=== PATIENT | female | born 1965 | race Caucasian/White ===

== ENCOUNTER 2016-06-13 21:12 | Emergency (ER) | payer OTHER ==
[~2016-06-13] VITALS: Ht 162.6 cm; Wt 69.9 kg
[~2016-06-13 21:12] MED LIST: AUGMENTIN 500M500 MG PO; B-121000 MC3 PO; CLARITHROMYCIN500 MG PO; IBUPROFEN800 M1 PO; MEDROL DOSEPAK1 PAC PO; MENEST0.625 MG PO; METOPROLOL SUCC25 M1 PO; NEXIUM 40MG40 MG PO; PATANASE0.6% NASB; PERCOCET 5-3251 EACH PO; SINGULAIR10 MG PO; TYLENOL WITH C1 EACH PO; VENTOLIN HFA18 GM INH; VICODIN5-300 PO; VITAMIN D31000 UNI1 PO; ZOFRAN ODT4 M1 SL; ZYRTEC10 M3 PO
--- NOTE | 2016-06-13 21:49 | ED GENERAL ADULT ---
History of Present Illness General Chief Complaint: General Adult Stated Complaint: NECK LUMP?? Source: patient Exam Limitations: no limitations Vital Signs & Intake/Output Vital Signs & Intake/Output Vital Signs Date Time Temp Pulse Resp B/P Pulse O2 O2 Flow FiO2 Ox Delivery Rate 06/13 2341 97.8 70 18 118/70 99 Room Air 06/13 2128 97.4 64 18 126/76 98 Room Air ED Intake and Output 06/14 0000 06/13 1200 Intake Total 0 Output Total Balance 0 Intake, Oral 0 Patient 154 lb Weight Allergies Coded Allergies: NO KNOWN ALLERGIES (09/23/15) Reconcile Medications Albuterol Sulfate (Ventolin Hfa) 90 MCG HFA.AER.AD 2 PUF INH Q4H PRN RESPIRATORY (Reported) Cetirizine HCl (Zyrtec) 10 MG TABLET 1 TAB PO DAILY ASTHMA (Reported) Cholecalciferol (Vitamin D3) (Vitamin D3) (Unknown Strength) CAPSULE 1 TAB PO DAILY SUPPLEMENT (Reported) Cyanocobalamin (Vitamin B-12) (B-12) (Unknown Strength) TABLET 1 TAB PO DAILY SUPPLEMENT (Reported) Ibuprofen 800 MG TABLET 800 MG PO Q6P PRN UTERINE CRAMPING Metoprolol Succinate 25 MG TAB 0.5 TAB PO DAILY HEART (Reported) Montelukast Sodium (Singulair) 10 MG TABLET 1 TAB PO DAILY PRN ALLERGIES ( Reported) Oxycodone HCl/Acetaminophen (Percocet 5-325 MG Tablet) 5 MG-325 MG TABLET 1 TAB PO Q4P PRN PAIN SCALE 4-6 (MODERATE) Triage Note: PT STATES THAT HER CO WORKER POINTED A LUMP OUT TO HER ON HER NECK. PT DENIES PAIN TO AREA AND JUST WANTS IT LOOKED AT Triage Nurses Notes Reviewed? yes HPI: Patient is a 51-year-old female presents complaining of lump to the anterior inferior aspect of her neck. Patient reports a coworker noticed the area yesterday. Patient reports that the area feels mildly increased in size and feels more irritated today. Pain is an irritation pain, currently mild. Denies fevers, chills, congestion, sore throat (SUNITA VARGAS) Past History Travel History Traveled to [place] past 21 day No Medical History Any Pertinent Medical History? 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 No (SUNITA VARGAS) Review of Systems Review of Systems Constitutional: Denies: chills, fever. EENTM: Reports: no symptoms. Denies: nasal congestion, throat pain, throat swelling. Respiratory: Denies: cough, short of breath. Cardiovascular: Denies: chest pain. GI: Reports: no symptoms. Denies: abdominal pain. Genitourinary: Reports: no symptoms. Musculoskeletal: Reports: no symptoms. Skin: Reports: see HPI. Neurological/Psychological: Reports: no symptoms. Hematologic/Endocrine: Reports: no symptoms. Immunologic/Allergic: Reports: no symptoms. (SUNITA VARGAS) Physical Exam Physical Exam General Appearance: well developed/nourished, alert, awake Head: atraumatic, normal appearance Eyes: Bilateral: normal appearance, PERRL, EOMI. Ears, Nose, Throat: normal pharynx, normal ENT inspection, hearing grossly normal Neck: 2 cm soft palpable lesion right anterior inferior neck. No induration or fluctuance. Minimal tenderness. Lesion mobile Respiratory: normal breath sounds, no respiratory distress, lungs clear Cardiovascular: regular rate/rhythm Back: normal inspection, normal range of motion Extremities: normal inspection, normal capillary refill, normal range of motion, no edema Neurologic/Psych: no motor/sensory deficits, awake, alert, oriented x 3, normal gait, normal mood/affect Skin: intact, normal color, warm/dry Lymphatic: right anterior inferior cervical lymphadenopathy. No other palpable swollen lymph nodes Core Measures ACS in differential dx? No CVA/TIA Diagnosis: No Severe Sepsis Present: No Septic Shock Present: No (SUNITA VARGAS) Progress Differential Diagnoses I considered the following diagnoses in my evaluation of the patient: Lymphadenopathy, abscess, thyroid abnormality, malignancy Plan of Care: Orders Procedure Date/time Status TSH REFLEX 06/14 2155 Complete CBC WITHOUT DIFFERENTIAL 06/14 2155 Complete BASIC METABOLIC PANEL 06/14 2155 Complete Laboratory Tests 06/13/168: Anion Gap 9, Estimated GFR > 60, BUN/Creatinine Ratio 21.3, Glucose 90, Calcium 9.2, TSH &T3 &Free T4 Intrp 3.030, CBC w Diff NO MAN DIFF REQ, RBC 4.26, MCV 91.2, MCH 30.0, RDW 13.2, MPV 9.0, Gran % 54.3, Lymphocytes % 36.4, Monocytes % 7.3, Eosinophils % 1.0, Basophils % 1.0, Absolute Granulocytes 4.9, Absolute Lymphocytes 3.3, Absolute Monocytes 0.7 H, Absolute Eosinophils 0.1, Absolute Basophils 0.1, PUBS MCHC 33.0 Suspect that palpable lesion is a lymph node. Results of labs discussed with patient. Imaging deferred. No signs of acute bacterial infection. Patient appears stable for discharge and follow-up with her primary care provider if no improvement. (SUNITA VARGAS) Initial ED EKG: none (SUNITA VARGAS) Departure Departure Time of Disposition: 2332 Disposition: HOME OR SELF CARE Condition: Stable Clinical Impression Primary Impression: Lymphadenopathy, anterior cervical Referrals: NEHEMIAH DALEY,TAMERA Duke (PCP/Family) Additional Instructions: Follow up with your primary doctor if there is not resolution within 1 week. Return to the ER if swelling significantly increasing, difficulty breathing, difficulty swallowing or worsening of symptoms. Departure Forms: Customer Survey General Discharge Information (SUNITA VARGAS) PA/INCOME TAX ANALYST Co-Sign Statement Statement: ED Attending supervision documentation- [] I saw and evaluated the patient. I have also reviewed all the pertinent lab results and diagnostic results. I agree with the findings and the plan of care as documented in the PA's/INCOME TAX ANALYST's documentation. [x] I have reviewed the ED Record and agree with the PA's/INCOME TAX ANALYST's documentation. [] Additions or exceptions (if any) to the PAs/INCOME TAX ANALYST's note and plan are summarized below: [] (BANDAR DALEY,KAYLAH Gee) Critical Care Note Critical Care Note Critical Care Time: non-applicable (SUNITA VARGAS)
[2016-06-13 22:33] LABS: ABSOLUTE BASOPHIL COUNT 0.1 /CUMM (0.0-0.2); ABSOLUTE EOSINOPHIL COUNT 0.1 /CUMM (0.0-0.7); ABSOLUTE GRANULOCYTE CT 4.9 /CUMM (1.4-6.5); ABSOLUTE LYMPH COUNT 3.3 /CUMM (1.2-3.4); ABSOLUTE MONOCYTE COUNT 0.7 /CUMM (0.10-0.60); GRANULOCYTE % 54.3 % (42.2-75.2); HEMATOCRIT 38.8 % (37-47); MEAN CORPUSCULAR VOLUME 91.2 FL (81.0-99.0); PLATELET COUNT 242 /CUMM (130-400); RBC DISTRIBUTION WIDTH 13.2 % (11.5-14.5); RED BLOOD CELL CT 4.26 /CUMM (4.20-5.40)
[2016-06-13 23:41] VITALS: BP 118/70
== END 2016-06-13 23:42 ==
LOC: ERH 21:12
PROVIDERS: Physician Assistant
DX: R59.1 Generalized enlarged lymph nodes (principal)